=== PATIENT | female | born 1965 ===

== ENCOUNTER 2016-11-29 13:32 | Emergency (ER) | payer OTHER ==
[2016-11-29 14:37] VITALS: BP 136/86; PULSE 75; RESP 18; TEMP 98; O2SAT 100
--- NOTE | 2016-11-29 14:59 | C.PDOC ---
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 Patient states the all around presser told her the dog is UTD on vaccinations. Patient is not UTD on tetanus. Patient denies trauma, fall, vomiting, headache, weakness or numbness. Time Seen by Provider: 11/29/16 14:36 Chief Complaint (Nursing): Bite History Per: Patient History/Exam Limitations: no limitations Onset/Duration Of Symptoms: Sudden Onset (PIT LABORER) Location Of Injury: Right: Buttock Past Medical History Reviewed: Historical Data, Nursing Documentation, Vital Signs Vital Signs: Last Vital Signs Temp 98 F 11/29/16 14:34 Pulse 75 11/29/16 14:34 Resp 18 11/29/16 14:34 BP 136/86 11/29/16 14:34 Pulse Ox 100 11/29/16 15:08 Family History: States: No Known Family Hx - Social History Hx Alcohol Use: No Hx Substance Use: No - Immunization History Hx Tetanus Toxoid Vaccination: No Hx Influenza Vaccination: No Hx Pneumococcal Vaccination: No Review Of Systems Except As Marked, All Systems Reviewed And Found Negative. Gastrointestinal: Negative for: Vomiting Skin: Positive for: Other (Dog bite to the right buttock) Neurological: Negative for: Weakness, Numbness, Headache Physical Exam - Physical Exam Appears: Non-toxic, No Acute Distress Skin: Warm, Dry, No Rash, Other (2.5 cm superficial abrasion to the right buttock. ) Head: Atraumatic, Normacephalic Eye(s): bilateral: Normal Inspection, PERRL, EOMI Oral Mucosa: Moist Chest: Symmetrical, Tenderness Cardiovascular: No Murmur Extremity: Normal ROM, No Swelling Neurological/Psych: Oriented x3, Normal Speech, Normal Motor ED Course And Treatment O2 Sat by Pulse Oximetry: 100 Progress Note: Patient states she has the all around presser information. Patient is brought UTD on tetanus. Medical Decision Making Medical Decision Making: PLAN: * Tetanus IM Disposition Counseled Patient/Family Regarding: Diagnosis, Need For Followup - Disposition Disposition: HOME/ ROUTINE Disposition Time: 14:56 Condition: GOOD Prescriptions: Amoxicillin/Clavulanate [Augmentin 875 MG-125 MG] 1 tab PO BID #10 tab Instructions: Animal Bite (ED) - Clinical Impression Clinical Impression: Animal bite wound - Scribe Statement The provider has reviewed the documentation as recorded by the Scribe Michelle Mccloudo Provider Attestation: All medical record entries made by the Roopa were at my direction and personally dictated by me. I have reviewed the chart and agree that the record accurately reflects my personal performance of the history, physical exam, medical decision making, and the department course for this patient. I have also personally directed, reviewed, and agree with the discharge instructions and disposition.
[2016-11-29] MEDS ORDERED: Bacitracin 500 Units/gm Oint Foilpak UD ONE (15:00)
== END 2016-11-29 15:38 | disposition home or self-care (01) ==
LOC: C.ER 13:32
DX: S30.870A Other superficial bite of lower back and pelvis, initial encounter (principal); W54.0XXA Bitten by dog, initial encounter; Y93.9 Activity, unspecified; Y92.9 Unspecified place or not applicable